=== PATIENT | female | born 1965 | race Asian ===

== ENCOUNTER 2016-06-07 12:44 | Emergency (ER) | payer SELFPAY ==
[~2016-06-07] VITALS: Ht 165.1 cm; Wt 63.5 kg
--- NOTE | 2016-06-07 12:49 | NUR ---
PT BIBA TO BED 3.
[2016-06-07 12:50] VITALS: BP 170/99
--- NOTE | 2016-06-07 12:56 | NUR ---
PATIENT LAITH FROM URGENT CARE FOR EVALUATION OF ANXIETY . PT STATES SHE BEGAN TO FEEL ANXIOUS THIS AM AND WENT TO URGENT CARE, BUT ONCE THERE HER ANXIETY LEVEL SARA AND HER CALLED 911 TO HAVE HER EVALUATED AT ER. HX ANXIETY. PT ALSO C/O GENERALIZED BODY PAIN, DENIES ANY FALL, TRAUMA, OR RECENT INJURY . DENIES N/V/D; SKIN IS PINK/WARM/DRY; AAOX4 WITH EVEN AND STEADY GAIT; LUNGS CLEAR BL; HR EVEN AND REGULAR; PT DENIES ANY FEVER, CP, SOB, OR COUGH AT THIS TIME; PATIENT STATES PAIN OF 4/10 AT THIS TIME; VSS; PATIENT POSITIONED FOR COMFORT; HOB ELEVATED; BEDRAILS UP X2; BED DOWN. ER MD MADE AWARE OF PT STATUS.
--- NOTE | 2016-06-07 13:19 | NUR ---
[place] AT BEDSIDE.
[2016-06-07 13:42] VITALS: BP 138/84
--- NOTE | 2016-06-07 13:43 | NUR ---
Patient discharged with v/s stable. Written and verbal after care instructions given and explained. Patient alert, oriented and verbalized understanding of instructions. Ambulatory with . All questions addressed prior to discharge. ID band removed. Patient advised to follow up with PMD. Rx of CIPRO given. Patient educated on indication of medication including possible reaction and side effects. Opportunity to ask questions provided and answered.
== END 2016-06-07 13:43 | disposition home or self-care (01) ==
LOC: MED 12:44
DX: F41.9 Anxiety disorder, unspecified (principal); N39.0 Urinary tract infection, site not specified